=== PATIENT | female | born 1945 | race Caucasian/White ===

== ENCOUNTER 2016-05-28 20:31 | Emergency (ER) | payer MEDICARE, OTHER ==
[2016-05-29] MEDS ORDERED: VANCOMYCIN 2,000 MG in SODIUM CHLORIDE 0.9% 500 ML IV ONE (02:20)
== END 2016-05-29 05:10 | disposition home or self-care (01) ==
LOC: ER 20:31
CPT/HCPCS: 96365 ×2; 96366 ×2; 99284; J7040